=== PATIENT | male | born 1965 | race Two or more races ===

== ENCOUNTER 2021-07-03 08:25 | Outpatient (CLI) | payer OTHER | END 2021-07-03 08:44 | disposition home or self-care (01) | LOC: MRI 08:25 | PROVIDERS: ATTEND Physical Medicine & Rehabilitation | DX: M54.5 Low back pain (principal) | CPT/HCPCS: 72148 ==

== ENCOUNTER 2021-09-25 08:00 | Outpatient (CLI) | payer OTHER | END 2021-09-25 08:30 | disposition home or self-care (01) | LOC: PPH VACUNA 08:00 | PROVIDERS: ATTEND Emergency Medicine Pediatric Emergency Medicine | DX: Z23 Encounter for immunization (principal) ==

== ENCOUNTER 2022-05-31 06:21 | Emergency (ER) | payer OTHER ==
[~2022-05-31] VITALS: Ht 180.3 cm; Wt 75.7 kg
== END 2022-05-31 13:24 | disposition home or self-care (01) ==
LOC: ER 06:21
DX: D69.6 Thrombocytopenia, unspecified (principal); R04.0 Epistaxis

== ENCOUNTER 2022-08-26 08:04 | Outpatient (CLI) | payer OTHER | END 2022-08-26 08:18 | disposition home or self-care (01) | LOC: LAB 08:04 | PROVIDERS: ATTEND Internal Medicine Hematology & Oncology | DX: D50.8 Other iron deficiency anemias (principal); R79.9 Abnormal finding of blood chemistry, unspecified; I10 Essential (primary) hypertension; R74.02 Elevation of levels of lactic acid dehydrogenase [LDH]; K76.89 Other specified diseases of liver; D51.1 Vitamin B12 deficiency anemia due to selective vitamin B12 malabsorption with proteinuria; D51.0 Vitamin B12 deficiency anemia due to intrinsic factor deficiency; E03.8 Other specified hypothyroidism; E06.3 Autoimmune thyroiditis; D68.8 Other specified coagulation defects; D69.1 Qualitative platelet defects ==

== ENCOUNTER 2024-01-24 14:56 | Outpatient (CLI) | payer OTHER | END 2024-01-24 15:08 | disposition home or self-care (01) | LOC: MRI 14:56 | DX: M25.569 Pain in unspecified knee (principal) | CPT/HCPCS: 73721 ==

== ENCOUNTER 2024-08-07 09:21 | Outpatient (CLI) | payer OTHER | END 2024-08-07 09:22 | disposition home or self-care (01) | LOC: NUCLEAR 09:21 | PROVIDERS: ATTEND Family Medicine | DX: I87.2 Venous insufficiency (chronic) (peripheral) (principal) ==

== ENCOUNTER 2025-05-14 10:48 | Outpatient (CLI) | payer OTHER | END 2025-05-14 10:52 | disposition home or self-care (01) | LOC: RAD 10:48 | PROVIDERS: ATTEND Family Medicine | DX: M79.642 Pain in left hand (principal); M25.561 Pain in right knee ==

== ENCOUNTER 2025-05-28 08:32 | Outpatient (CLI) | payer OTHER | END 2025-05-28 08:45 | disposition home or self-care (01) | LOC: RAD 08:32 | DX: M99.01 Segmental and somatic dysfunction of cervical region (principal); M99.02 Segmental and somatic dysfunction of thoracic region; M99.03 Segmental and somatic dysfunction of lumbar region ==